=== PATIENT | female | born 1955 | race Caucasian/White ===

== ENCOUNTER 2022-05-02 21:33 | Emergency (ER) | payer MEDICARE, OTHER, SELFPAY ==
[2022-05-02] VITALS (20 sets, daily range): BP systolic 103–162; BP diastolic 55–107; PULSE 72–86; RESP 12–30; TEMP 36.9; O2SAT 89–99; BMI 26.6
--- NOTE | 2022-05-02 21:38 | DI.RAD.S_ITS ---
PROCEDURE: XR HIP W PEL IF DONE LT 2V INDICATIONS: fall with obvious hip deformity TECHNIQUE: AP pelvis with lateral view of the left hip. COMPARISON: None. 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 There is associated proximal displacement. No definite fracture identified. No suspicious periprosthetic lucencies. Right hip appears congruent. Pelvic ring appears intact. No suspicious bony lesions. Soft tissues: The visualized bowel gas pattern is normal. No suspicious soft tissue calcifications. IMPRESSION: 1. Dislocation of left hip prosthesis. Dictated by: Joe Templeton M.D. on 05/02/2022 at 21:54 Approved by: Joe Templeton M.D. on 05/02/2022 at 21:55
[2022-05-02] MEDS: ONDANSETRON 4 MG/2 ML INJ IV (22:07)
[2022-05-02] MEDS: propofoL 200 MG/20 ML VIAL 75 MG IV (22:07)
[2022-05-02] MEDS: propofoL 200 MG/20 ML VIAL 25 MG IV (22:11)
--- NOTE | 2022-05-02 22:17 | DI.RAD.S_ITS ---
PROCEDURE: XR HIP LT 1V INDICATIONS: post reduction TECHNIQUE: 1 view of the hip were acquired. COMPARISON: [facility], CR, XR HIP W PEL IF DONE LT 2V, 05/02/2022, 21:43. FINDINGS: Bones: There is interval reduction of the previously dislocated left hip prosthesis. The hip prosthesis appears congruent. No fractures identified. No suspicious bony lesions. The visualized pelvic ring appears intact. Soft tissues: No suspicious soft tissue calcifications or masses. IMPRESSION: 1. Interval reduction of the previously dislocated left hip prosthesis. Dictated by: Joe Templeton M.D. on 05/02/2022 at 23:06 Approved by: Joe Templeton M.D. on 05/02/2022 at 23:08
--- NOTE | 2022-05-02 22:48 | ED_ITS ---
HPI - Extremity Injury (Lower) General Chief Complaint: Trauma Stated Complaint: GLF- L hip pain Time Seen by Provider: 05/02/22 21:38 History of Present Illness HPI Narrative: 66-year-old female nonsmoker occasionally drinks alcohol presents by EMS for evaluation a left hip injury. It is reported that she had slipped and fallen into the bathtub and felt a pop in her left hip, she states that she had a left total hip arthroplasty about 8 weeks ago at an outside facility. She has si gnificant pain in decreased range of motion secondary not only to pain but also mechanical obstruction. She denies any numbness, tingling or weakness. Her pain is worse any motion or palpation. Review of Systems Review of Systems Narrative: GENERAL: Denies chills, fatigue, malaise, fever, sweats. HEENT: Denies sinus pain, ear pain, sore throat, difficulty swallowing, dizziness. RESPIRATORY: Denies dyspnea, cough, wheezing, hemoptysis, sputum. CARDIOVASCULAR: Denies chest pain, palpitations, orthopnea, edema, GASTROINTESTINAL: Denies nausea, vomiting, abdominal pain, diarrhea, constipation, melena. : Denies dysuria, frequency, incontinence, hematuria, urinary retention. MUSCULOSKELETAL: See HPI SKIN: Denies rash, skin lesions, or other NEUROLOGIC: Denies weakness, headache, numbness, change in speech, confusion, seizures, incoordination. PSYCHIATRIC: No concerning psychosocial issues. 12 point review of systems is negative except for those stated above Exam Narrative Exam Narrative: GENERAL: [66] year old patient appears stated age. Well-developed patient, in mild distress. HEAD: Atraumatic. Normocephalic. EYES: Pupils equal round and reactive. Extraocular motions intact. No scleral icterus. No injection or drainage. ENT: Nose without bleeding, purulent drainage. Throat without erythema, tonsillar hypertrophy or exudate. Airway patent. NECK: Trachea midline. Non tender CARDIOVASCULAR: Regular rate and rhythm without murmurs, gallops, or rubs. RESPIRATORY: Clear to auscultation. Breath sounds equal bilaterally. No wheezes, rales, or rhonchi. GASTROINTESTINAL: Abdomen soft, non-tender, nondistended. EXTREMITIES: Shortening and internal rotation of left hip, closed, isolated and neurovascularly intact BACK: Nontender without deformity or crepitance. No flank tenderness. NEURO: AOx3. SKIN: No rash or erythema of visible areas Initial Vital Signs Initial Vital Signs: Vital Signs Pulse Rate 79 05/02/22 21:38 Blood Pressure 144/107 H 05/02/22 21:38 Pulse Oximetry 97 05/02/22 21:38 Procedures Orthopedic Joint Reduction Joint #1: Time Out Performed: Yes Side: left Joint Reduction Location: hip Technique used: traction/counter-traction and direct manipulation Post-reduction neuro exam: intact Post-reduction vascular: intact Post Reduction X-Ray Obtained: Yes Post Reduction X-Ray Results: reduced Splint Applied: No Procedural Sedation Consent signed: Yes Time out performed: Yes Indication: fracture/dislocation reduction ASA Class: I Mallampati Airway Classification: Class III Preparation: satellite project site monitor applied, pulse oximeter, capnometry used, supplemental O2 applied, suction/airway equipment at bedside and IV secured IV Propofol dose (mg): 100 Intraservice time/total sedation time (min): 12 ED Sedation Level: Moderate (Concious) Patient Tolerated Procedure: Well Complications: none Course Orders Ordered: ED Orders 05/02/22 21:38 XR hip w pel if done LT 2V Stat 05/02/22 22:03 COVID19 -Nasal RAPID/Pre-Proc Stat 05/02/22 22:17 XR hip LT 1V Stat Discontinued Medications Ondansetron HCl (Ondansetron 4 Mg/2 Ml Inj) 4 mg IV NOW ONE Stop: 05/02/22 21:56 Last Admin: 05/02/22 22:07 Dose: 4 mg Documented By: CODY Propofol (Propofol 200 Mg/20 Ml Vial) 75 mg 1 mg/kg (75 mg) IV NOW ONE Stop: 05/02/22 21:56 Last Admin: 05/02/22 22:07 Dose: 75 mg Documented By: CTS Propofol (Propofol 200 Mg/20 Ml Vial) 25 mg IV NOW ONE Stop: 05/02/22 22:11 Last Admin: 05/02/22 22:11 Dose: 25 mg Documented By: CTS Vital Signs Vital signs: Vital Signs - 8 hr 05/02/22 21:39 05/02/22 21:38 05/02/22 21:38 Temperature 98.4 F Pulse Rate 73 79 Respiratory Rate 16 Blood Pressure 144/107 H 144/107 H Pulse Oximetry 97 97 Oxygen Delivery Method Room Air 05/02/22 22:00 05/02/22 22:03 05/02/22 22:03 Temperature Pulse Rate 73 81 Respiratory Rate Blood Pressure 162/70 H Pulse Oximetry 96 95 Oxygen Delivery Method 05/02/22 22:05 05/02/22 22:10 05/02/22 22:10 Temperature Pulse Rate 77 77 Respiratory Rate 14 12 Blood Pressure 137/65 Pulse Oximetry 98 97 Oxygen Delivery Method 05/02/22 22:15 05/02/22 22:15 05/02/22 22:20 Temperature Pulse Rate 72 Respiratory Rate 30 H Blood Pressure 123/59 L 126/59 L Pulse Oximetry 94 Oxygen Delivery Method 05/02/22 22:20 05/02/22 22:25 05/02/22 22:25 Temperature Pulse Rate 81 79 Respiratory Rate 26 H 21 Blood Pressure 122/58 L Pulse Oximetry 89 L 94 Oxygen Delivery Method 05/02/22 22:30 05/02/22 22:30 05/02/22 22:35 Temperature Pulse Rate 77 Respiratory Rate 18 Blood Pressure 122/58 L 118/55 L Pulse Oximetry 94 Oxygen Delivery Method 05/02/22 22:35 05/02/22 22:40 05/02/22 22:40 Temperature Pulse Rate 78 79 Respiratory Rate 29 H 23 Blood Pressure 116/61 Pulse Oximetry 97 96 Oxygen Delivery Method 05/02/22 23:21 05/02/22 22:45 05/02/22 22:45 Temperature Pulse Rate 76 78 Respiratory Rate 18 22 Blood Pressure 134/78 114/57 L Pulse Oximetry 95 92 Oxygen Delivery Method Room Air 05/02/22 22:50 05/02/22 22:50 05/02/22 22:55 Temperature Pulse Rate 80 Respiratory Rate 23 Blood Pressure 111/56 L 114/55 L Pulse Oximetry 92 Oxygen Delivery Method 05/02/22 22:55 05/02/22 23:00 05/02/22 23:00 Temperature Pulse Rate 81 84 Respiratory Rate 18 22 Blood Pressure 103/55 L Pulse Oximetry 99 99 Oxygen Delivery Method 05/02/22 23:05 05/02/22 23:05 05/02/22 23:10 Temperature Pulse Rate 83 Respiratory Rate 21 Blood Pressure 123/59 L 134/60 Pulse Oximetry 99 Oxygen Delivery Method 05/02/22 23:10 Temperature Pulse Rate 86 Respiratory Rate 29 H Blood Pressure Pulse Oximetry 99 Oxygen Delivery Method MDM - Extremity Injury (Lower) Lab Data Labs: Lab Results 05/02/22 Range/Units 22:03 SARS-CoV-2 (PCR) Negative (Negative) Point of Care Testing Test Results Not applicable Imaging Data Extremity x-ray #1: Radiologist's Impression: [address] [address] XRay Report Signed Patient: Marilyn Salazar MR#: [id number] : 1955 Acct:[id number] Age/Sex: 66 / F Date of Service: 05/02/22 Loc: ED Accession Number: [id number] ?? Procedure: XR hip w pel if done LT 2V Ordering Provider: Rell Tan D.O. PROCEDURE:? XR HIP W PEL IF DONE LT 2V ? INDICATIONS:? fall with obvious hip deformity ? TECHNIQUE:? AP pelvis with lateral view of the left hip. ? COMPARISON:? None. ? FINDINGS:? ? Bones:? 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 There is associated proximal displacement.? No definite fracture identified.? No suspicious periprosthetic lucencies.? Right hip appears congruent.? Pelvic ring appears intact.? No suspicious bony lesions.? ? Soft tissues:? The visualized bowel gas pattern is normal.? No suspicious soft tissue calcifications.? ? ? IMPRESSION:? ? 1. Dislocation of left hip prosthesis. ? ? ? Dictated by: Joe Templeton M.D. on 05/02/2022 at 21:54 ? ? Approved by: Joe Templeotn M.D. on 05/02/2022 at 21:55 ? Extremity x-ray #2: Radiologist's Impression: Close Hip X-Ray (Signed) Joe Templeton - 05/02/22 Hip X-Ray (Signed) Joe Templeton - 05/02/22 Launch?Image [address] [address] XRay Report Signed Patient: Marilyn Salazar MR#: [id number] : 1955 Acct:[id number] Age/Sex: 66 / F Date of Service: 05/02/22 Loc: ED Accession Number: [id number] ?? Procedure: XR hip LT 1V Ordering Provider: Rell Tan D.O. PROCEDURE:? XR HIP LT 1V ? INDICATIONS:? post reduction ? TECHNIQUE:? 1 view of the hip were acquired.? ? COMPARISON:? [facility], CR, XR HIP W PEL IF DONE LT 2V, 05/02/2022, 21:43. ? FINDINGS:? ? Bones:? There is interval reduction of the previously dislocated left hip prosthesis.? The hip prosthesis appears congruent.? No fractures identified.? No suspicious bony lesions.? The visualized pelvic ring appears intact.? ? Soft tissues:? No suspicious soft tissue calcifications or masses.? ? IMPRESSION:? ? 1. Interval reduction of the previously dislocated left hip prosthesis.? ? ? Dictated by: Joe Templeton M.D. on 05/02/2022 at 23:06 ? ? Approved by: Joe Templeton M.D. on 05/02/2022 at 23:08 ? Discharge Plan Departure Patient Disposition: Home Clinical Impression: Dislocation, hip closed Instructions: DI for Hip Dislocation -- Adult Activity Restrictions/Additional Instructions: *You have been diagnosed with [left hip dislocation with procedural sedation and successful reduction, confirmed by imaging and physical exam.] *What to do: *Please continue to take your regular medications as directed. [ ] New medication prescriptions sent to your pharmacy: [ ] [ ] New medication written as a paper prescription [ x] No new medications given *Please follow up with your orthopedic provider in 2-3 days, call for an appointment. Let them know you were seen in the Emergency Department and that we ask that you be seen in follow up. We will electronically transmit a record of today's note if your PCP is in our system *Please follow the activity limitations as discussed by your orthopedic group when you were discharged including careful avoidance of flexion at the hip among others *Return to Emergency Department if you should have any new, worsening or concerning symptoms, such as [fever greater than 101 F, shaking chills, worsening pain, persistent vomiting or other bothersome symptoms] Visit Report Forms: Patient Portal/API
[2022-05-02 23:04] LABS: COVID19 -Nasal RAPID Negative (Negative)
== END 2022-05-02 23:21 | disposition home or self-care (01) ==
PROVIDERS: Emergency Provider Emergency Medicine
DX: T84.021A Dislocation of internal left hip prosthesis, initial encounter (principal); W19.XXXA Unspecified fall, initial encounter; Z20.822 Contact with and (suspected) exposure to COVID-19
CPT/HCPCS: 27265; 73501; 73502; 87635; 96374; 99152; 99284; 99285; C9803; J2405; J2704